=== PATIENT | female | born 1955 | race Caucasian/White ===

== ENCOUNTER 2018-12-23 10:09 | Day surgery (SDC) | payer OTHER ==
[2018-12-23] MEDS ORDERED: FENTAnyl 50 MCG/ML VIAL (11:58)
[2018-12-23] MEDS ORDERED: MIDAZOLAM 1 MG/ML 2 ML INJ ×2 (11:58)
== END 2018-12-23 13:50 | disposition home or self-care (01) ==
LOC: GIL 10:09
DX: Z12.11 Encounter for screening for malignant neoplasm of colon (principal); K29.30 Chronic superficial gastritis without bleeding; K64.8 Other hemorrhoids; K21.9 Gastro-esophageal reflux disease without esophagitis
CPT/HCPCS: 43239; 88305; 88312